=== PATIENT | female | born 1950 | race Caucasian/White ===

== ENCOUNTER 2021-10-27 09:29 | Outpatient (CLI) | payer OTHER | END 2021-10-27 09:41 | disposition home or self-care (01) | LOC: TOM 09:29 | PROVIDERS: ATTEND Otolaryngology | DX: R13.10 Dysphagia, unspecified (principal); R22.1 Localized swelling, mass and lump, neck ==

== ENCOUNTER 2021-11-15 09:04 | Outpatient (CLI) | payer OTHER | END 2021-11-15 09:11 | disposition home or self-care (01) | LOC: SONOGRAMA 09:04 → RX STUDY 09:04 | PROVIDERS: ATTEND Otolaryngology | DX: R13.10 Dysphagia, unspecified (principal); K21.9 Gastro-esophageal reflux disease without esophagitis ==